=== PATIENT | male | born 1940 ===

== ENCOUNTER 2016-12-28 05:34 | Day surgery (SDC) | payer MEDICARE, BC ==
[~2016-12-28] VITALS: Ht 167.6 cm; Wt 74.8 kg
[2016-12-28] VITALS (10 sets, daily range): BP systolic 102–148; BP diastolic 56–79
[~2016-12-28 05:34] MED LIST: CARVEDILOL6.25 MG ORAL; CYCLOGYL2 M1 OP; Cyclopentolate 1% Opth Sol 2ml ONE; FAMOTIDINE20 MG ORAL; LISINOPRIL10 MG ORAL; METFORMIN HCL500 M1 ORAL; PANTOPRAZOLE SO40 MG ORAL; Phenylephrine 2.5% Op 2ml Soln ONE; Proparacaine 0.5% Opth Soln 15ml ONE; RAPAFLO8 MG ORAL; SIMVASTATIN20 MG ORAL; Tropicamide 1% Opth 15ml Soln ONE
[2016-12-28] MEDS ORDERED: Pred Forte 1% Opth Susp 1ml ONE (06:26)
[2016-12-28] MEDS ORDERED: Kenalog-40 1ml Vial ONE (06:26)
[2016-12-28] MEDS ORDERED: BSS 500ml btl ONE (06:26)
[2016-12-28] MEDS ORDERED: Maxitrol Opth Oint 3.5gm ONE (06:27)
[2016-12-28] MEDS ORDERED: Tetracaine 0.5% Opth 4ml Soln ONE (06:27)
[2016-12-28] MEDS ORDERED: Dexamethasone 4mg/ml vial ONE (06:27)
[2016-12-28] MEDS ORDERED: Povidone-Iodine 5% opth solution ONE (06:27)
[2016-12-28] MEDS ORDERED: BSS 15ml BTL ONE (06:28)
[2016-12-28] MEDS ORDERED: Bupivacaine 0.75% 30ml vial INJ ONE (06:28)
[2016-12-28] MEDS ORDERED: Goniosol 2.5% Opth Soln - 15ml ONE (06:28)
[2016-12-28] MEDS ORDERED: EPINEPHrine 1mg/1ml Amp ONE (06:28)
[2016-12-28] MEDS ORDERED: Lidocaine 2% MPF 5ml Vial INJ ONE (06:28)
[2016-12-28] MEDS ORDERED: Sterile Water Irrig 1000ml IRRIG ONE (07:00)
[2016-12-28] MEDS ORDERED: Propofol 200mg/20ml IV ONE (07:00)
[2016-12-28] MEDS ORDERED: Midazolam 2mg/2ml Inj ONE (07:00)
[2016-12-28] MEDS ORDERED: Phenylephrine 2.5% Op 2ml Soln RIGHT EYE SCH (07:00)
[2016-12-28] MEDS ORDERED: LR 1000ml ONE (07:00)
[2016-12-28] MEDS ORDERED: NS Irrig 1000ml ONE (07:00)
[2016-12-28] MEDS ORDERED: Cyclopentolate 1% Opth Sol 2ml RIGHT EYE SCH (07:00)
[2016-12-28] MEDS ORDERED: Proparacaine 0.5% Opth Soln 15ml RIGHT EYE ONE (07:00)
[2016-12-28] MEDS ORDERED: fentaNYL 100 mcg/2 mL IV ONE (07:00)
[2016-12-28] MEDS ORDERED: Tropicamide 1% Opth 15ml Soln RIGHT EYE SCH (07:00)
--- NOTE | 2016-12-28 07:19 | Pre-Procedure Note/Attestation ---
Pre-Procedure Note/Attestation Complete Prior to Procedure Planned Procedure: right Procedure Narrative: ERM/VO OD; plan for PPV/MP/AFE OD Indications for Procedure Pre-Operative Diagnosis: ERM/VO OD Attestation I attest that I discussed the nature of the procedure; its benefits; risks and complications; and alternatives (and the risks and benefits of such alternatives ), prior to the procedure, with the patient (or the patient's legal sales representative). I attest that, if there was a reasonable possibility of needing a blood transfusion, the patient (or the patient's legal sales representative) was given the [facility] standardized written summary, pursuant to the Jarred [place] Blood Safety Act ([place] Health and Safety Code # 1645, as amended). I attest that I re-evaluated the patient just prior to the surgery and that there has been no change in the patient's H&P, except as documented below: Reagan Ernandez M.D. Dec 28, 2016 07:19
--- NOTE | 2016-12-28 07:21 | Brief Operative Note ---
Immediate Post Operative Note Operative Note Pre-op Diagnosis: ERM/VO OD Procedure: PPV/MP/AFE OD Post-op Diagnosis: Same Surgeon: Awais Anesthesia: local Specimen: none Complications: none Condition: stable Fluids: None Estimated Blood Loss: minimal Drains: none Implant(s) used?: No Reagan Ernandez M.D. Dec 28, 2016 07:21
--- NOTE | 2016-12-28 07:21 | Operative Note - PDOC ---
Operative Note Operative Note Pre-op Diagnosis: ERM/VO OD Procedure: PPV/MP/AFE OD Post-op Diagnosis: Same Surgeon: Awais Anesthesia: local Specimen: none Complications: none Condition: stable Fluids: None Estimated Blood Loss: minimal Drains: none Implant(s) used?: No Indications for Procedure Operative Report [place] [facility] [place] Diagnosis: Visually significant macular pucker, RIGHT EYE Post-operative Diagnosis: Same Procedure: Pars plana vitrectomy, membrane peel, internal limiting membrane peel, air-fluid exchange, RIGHT EYE Surgeon: Reagan Ernandez M.D. Anesthesia: Peribulbar Complications: None Indications for the procedure: The patient has vision loss due to macular pucker and presents today for surgery. After review of the risks, benefits, alternative and the patient signed informed consent into the medical chart. Description of Procedure Procedure performed: The patient was met in the pre-op area where informed consent was reviewed. The operative eye was verified, marked and dilated. The patient was transferred to the operative suite, where cardiopulmonary monitoring was established and peribulbar anesthetic was administered without complications. The eye was prepped and draped in sterile ophthalmic fashion. Under microscope visualization the 23 gauge infusion line was placed inferotemporally. After visualization of the tip in the vitreous cavity, the infusion line was turned on. The superotemporal and superonasal cannulas were placed. Under BIOM visualization, peripheral and core vitrectomy was performed. Posterior vitreous separation was induced. Kenalog/ICG was used to stain the posterior pole. Under contact lens visualization, the ERM/ILM was peeled with forceps. Further peripheral vitrectomy was performed. Inspection of the peripheral revealed no iatrogenic breaks. Air-fluid exchange was performed. The cannulas were removed without leakage from the sclerotomies. The infusion line was removed. The eye maintained normal intraocular pressure. Subconjunctival vancomycin and dexamethasone were administered. The lid speculum was removed. The eye was cleaned of prep and drape. Atropine drop and Maxitrol ointment was applied. A pressure patch was placed. The patient was turned over to the anesthesia team and transferred in stable condition to the PACU. Reagan Ernandez M.D. Dec 28, 2016 07:21
[2016-12-28] MEDS ORDERED: Indocyanine Green 25mg Inj INJ ONE (07:30)
[2016-12-28] MEDS ORDERED: LR 1000ml 1,000 ML IVLG SCH (08:08)
[2016-12-28] MEDS ORDERED: Metoclopramide 10mg/2ml Inj IVP PRN (08:15)
[2016-12-28] MEDS ORDERED: Midazolam 2mg/2ml Inj IVP PRN (08:15)
[2016-12-28] MEDS ORDERED: Hydromorphone 0.5mg/0.5ml inj IVP PRN (08:15)
[2016-12-28] MEDS ORDERED: Ketorolac 30mg Inj IV PRN (08:15)
[2016-12-28] MEDS ORDERED: DiphenhydrAMINE 50mg/ml Inj IVP PRN (08:15)
[2016-12-28] MEDS ORDERED: fentaNYL 100 mcg/2 mL IV PRN (08:15)
== END 2016-12-28 09:30 | disposition home or self-care (01) ==
LOC: SUR 05:34
DX: H35.371 Puckering of macula, right eye (principal); I10 Essential (primary) hypertension; K21.9 Gastro-esophageal reflux disease without esophagitis; M50.30 Other cervical disc degeneration, unspecified cervical region; E78.5 Hyperlipidemia, unspecified; Z79.84 Long term (current) use of oral hypoglycemic drugs; Z88.6 Allergy status to analgesic agent; E66.3 Overweight; Z68.26 Body mass index [BMI] 26.0-26.9, adult
CPT/HCPCS: 67042; 82962; J1100; J2250; J2704; J3010; J3370; J3490; J7120; 94003; 94150